=== PATIENT | female | born 1955 | race Caucasian/White ===

== ENCOUNTER 2022-06-09 22:06 | Observation (INO) | payer OTHER ==
--- OUTSIDE RECORDS SUMMARY | 2022-06-09 22:11 | XMS REPORT | Continuity of Care Document ---
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 Performing RAC) Organization Information: Site ID: RGA Name: [facility] Address: [address] [place] [phone] Director: Yobani Beltran Lab Interpretation Abnormal (test code = 00540-6) [facility], [id number] 10:31:00 Test Item Value Reference Range Interpretation Comments T3, free (test code 3.3 pg/mL 2.3-4.2 = 3051-0) MOISÉS (test code = FASTING:YES FASTING: YES MOISÉS) RAC (test code = Performing Organization RAC) Information: Site ID: RGA [facility]: [facility] Address: [address] [place] [phone] Director: Yobani Beltran [facility] with platelet and [id number] 10:31:00 Test Item Value Reference Range Interpretation Comments WBC (test code = See_Comment [Automated 0040-2) message] The system which generated this result transmitted reference range : 3.8 - 10.8 Thousand/uL. Th e reference range was not used to interpret this result as normal/abnormal . RBC (test code = See_Comment [Automated 359-8) message] The system which generated this result transmitted reference range : 3.80 - 5.10 Million/uL. The reference range was not used to interpret this result as normal/abnormal . HGB (test code = 13.7 g/dL 11.7-15.5 718-7) HCT (test code = 40.8 % 35-45 4544-3) MCV (test code = 89.7 fL 80-100 787-2) MCH (test code = 30.1 pg 27-33 785-6) MCHC (test code = 33.6 g/dL 32-36 786-4) RDW (test code = 11.7 % 11-15 788-0) Platelet count See_Comment [Automated (test code = message] The 777-3) system which generated this result transmitted reference range : 140 - 400 Thousand/uL. Th e reference range was not used to interpret this result as normal/abnormal . MPV (test code = 10.4 fL 7.5-12.5 776-5) Neutrophils, See_Comment [Automated absolute (test message] The code = 751-8) system which generated this result transmitted reference range : 1,500 - 7,800 cells/uL. The reference range was not used to interpret this result as normal/abnormal . Lymphocytes, See_Comment [Automated absolute (test message] The code = 731-0) system which generated this result transmitted reference range : 850 - 3,900 cells/uL. The reference range was not used to interpret this result as normal/abnormal . Monocytes, See_Comment [Automated absolute (test message] The code = 742-7) system which generated this result transmitted reference range : 200 - 950 cells/uL. The reference range was not used to interpret this result as normal/abnormal . Eosinophils, See_Comment [Automated absolute (test message] The code = 711-2) system which generated this result transmitted reference range : 15 - 500 cells/uL. The reference range was not used to interpret this result as normal/abnormal . Basophils, See_Comment [Automated absolute (test message] The code = 704-7) system which generated this result transmitted reference range : 0 - 200 cells/u L. The reference range was not used to interpr et this result as normal/abnormal . Neutrophils (test 47.1 % code = 770-8) Lymphocytes (test 37.2 % code = 736-9) Monocytes (test 10.6 % code = 5905-5) Eosinophils (test 4.1 % code = 713-8) Basophils + RC 1.0 % (test code = 706-2) MOISÉS (test code = FASTING:YES MOISÉS) FASTING: YES RAC (test code = Performing RAC) Organization Information: Site ID: RGA [facility]: [facility] Address: [address] [place] [phone] Director: Yobani Beltran [facility] SPINE LUMBAR W/O CONTRAST*HSE*2017-11-06 11:05:49EXAM: MRI LUMBAR SPINE WITHOUT CONTRASTINDICATION: Back painCOMPARISON: Radiographs dated 09/25/17TECHNIQUE: Multiplanar, multisequence noncontrast MR imaging of the lumbarspine.IV contrast: None.FINDINGS: There are 5 nonrib-bearing lumbar vertebra. There is hypointense T1 andhyperintense T2 signal within the opposing endplates at L2-L3 consistent withModic type I changes. The remaining vertebral bodies are normal in height,alignment and signal intensity. The facet joints and spinous processes arenormal in alignment. Intervertebral disc heights are normal.The conus medullaris terminates at L1 and is normal in signal intensity andcaliber. The cauda equina is normal.The posterior paraspinal soft tissues are normal. The imaged portion of theabdomen is unremarkable.INDIVIDUAL LEVELS:L1- L2: No spinal canal or neuroforaminal stenosis.L2-L3: Circumferential disc bulge measuring 6 mm. Mild spinal canal stenosiswith effacement of the lateral recesses. Diffuse facet joint hypertrophy.Moderate right and mild left neuroforaminal stenosis.L3-L4: No spinal canal stenosis. Facet joint hypertrophy with mildneuroforaminal stenosis.L4-L5: Circumferential disc bulge measuring 5 mm. Mild effacement of thelateralrecesses. Facet joint hypertrophy with mild neuroforaminal stenosis.L5-S1: No spinal canal nor foraminal stenosis.IMPRESSION: 1. Degenerative changes throughout the lumbar spine predominantly at L2-L3.2. Mild spinal canal stenosis at L2-L3 with effacement of the lateralrecesses.3. Effacement of the lateral recesses at L4-L5.4. Moderate neuroforaminal stenosis at L2-L3 on the right.LOCATION: R16XR SPINE LUMBAR COMPLETE*HSE*2017-09-27 21:13:47EXAM: Lumbar spine seriesLOCATION: [id number]: low back pain. COMPARISON: NoneDISCUSSION: AP, L5-S1, oblique, and lateral views of the lumbar spine are submitted.Mild bone demineralization limits evaluation.There are 5 lumbar-type foz-tgl-lcxvnwe vertebral bodies. Lumbar lordosis is slightly straightened.Mild lumbar levoscoliosis is centered at L2-L3.Alignment is otherwise within normal limits.No definite acute fracture or compression deformity is seenMild to moderate multilevel spondylosis is most prominent on the right atL2-L3.The sacrum is partially obscured by bowel gas/material. Multiple coarsecalcifications over the pelvis may be due to fibroids and phleboliths. Mildatherosclerotic calcifications are present.IMPRESSION:1. No acute osseous abnormalities.2. Mild to moderate multilevel spondylosis, most prominent on the right atL2-L3.
[2022-06-09 23:26] LABS: Urine Blood Negative (Negative); Urine Glucose Negative (Negative); Urine Protein Negative (Negative)
--- NOTE | 2022-06-09 23:29 | RAD REPORT ---
EXAM DESCRIPTION: Sonya Single View06/09/2022 11:23 pm CLINICAL HISTORY: Syncope COMPARISON: none FINDINGS: The lungs appear clear of acute infiltrate. The heart is normal size IMPRESSION: No acute abnormalities displayed
[2022-06-09 23:30] LABS: Absolute Lymphocytes (CBC) 1.1 K/uL (0.7-4.9); Hematocrit 39.5 % (36.0-45.0); Lymphocytes % 23.9 % (15.3-44.8); MCV 91.4 fL (80-100); MPV 7.6 fL (7.6-11.3); RBC Red Blood Cell Count 4.33 M/uL (3.86-4.86)
[2022-06-09 23:31] LABS: Protime INR 1.04
[2022-06-09 23:50] LABS: Albumin 3.4 g/dL (3.4-5.0); Bilirubin Direct 0.1 mg/dL (0-0.2); Bilirubin Total 0.5 mg/dL (0.2-1.0); Magnesium 2.2 mg/dL (1.8-2.4); Potassium 3.5 mmol/L (3.5-5.1); Protein, Total 7.2 g/dL (6.4-8.2); Troponin High Sensitivity 9.9 pg/mL (<58.9)
[2022-06-10 00:05] LABS: Urine Mucus Slight /HPF (None Seen); Urine RBC <5 /HPF (None Seen)
--- NOTE | 2022-06-10 01:05 | EDPHYS ---
Physician Documentation [facility] [place] Name: Rossy Delgado Age: 66 yrs Sex: Female : 1955 Arrival Date: 06/09/2022 Time: 22:10 Bed 20 Private MD: ED Physician Lionel Hernandez HPI: 06/09 23:05 This 66 yrs old Female presents to ER via Ambulatory with complaints of Lightheaded, cp "blacked out". 23:05 The patient has experienced syncope, lost consciousness. Onset: The symptoms/episode cp began/occurred today, about 2029. Duration: This was a single episode, that lasted an unknown period of time. Context: the episode(s) was witnessed, by no one, occurred at home, occurred while the patient was talking on phone, patient reportedly became unresponsive for unknown duration. Just prior to the episode the patient experienced no apparent symptoms. 23:05 Associated injury: The patient did not suffer any apparent associated injury. Current cp symptoms: Currently, the patient is not experiencing any symptoms. Historical: - Allergies: 22:43 PENICILLINS; aa9 - Home Meds: 23:28 levothyroxine 100 mcg tab 1 tab once daily [Active]; celecoxib 200 mg Oral cap 1 cap ll3 once daily [Active]; zolpidem 10 mg Oral tab 1 tab nightly [Active]; quetiapine 100 mg oral tab 1 tab nightly [Active]; - PMHx: 22:43 stroke; aa9 22:47 Pneumonia; Glaucoma; aa9 - PSHx: 22:43 Craniotomy; aa9 - Immunization history:: Client reports receiving the 2nd dose of the Covid vaccine, Flu vaccine is not up to date. - Social history:: Smoking status: Patient denies any tobacco usage or history of. ROS: 23:10 Constitutional: Negative for body aches, chills, fever, poor PO intake. cp 23:10 Eyes: Negative for injury, pain, redness, and discharge. cp 23:10 ENT: Negative for drainage from ear(s), ear pain, sore throat, difficulty swallowing, difficulty handling secretions. 23:10 Cardiovascular: Negative for chest pain, edema, palpitations. 23:10 Respiratory: Negative for cough, shortness of breath, wheezing. 23:10 Abdomen/GI: Negative for abdominal pain, nausea, vomiting, and diarrhea, black/tarry stool, rectal bleeding. 23:10 Neuro: Positive for syncope, Negative for altered mental status, dizziness, headache, weakness. 23:10 All other systems are negative. Exam: 22:50 ECG was reviewed by the Attending Physician. cp 23:15 Constitutional: The patient appears in no acute distress, alert, awake, comfortable, cp non-diaphoretic, non-toxic, well developed, well nourished. 23:15 Head/Face: Normocephalic, atraumatic. cp 23:15 Eyes: Periorbital structures: appear normal, Pupils: equal, round, and reactive to light and accomodation, Extraocular movements: intact throughout, Conjunctiva: normal, no exudate, no injection, Sclera: no appreciated abnormality, Lids and lashes: appear normal, bilaterally. 23:15 ENT: External ear(s): are unremarkable, Nose: is normal, Mouth: Lips: moist, Oral mucosa: pink and intact, moist, Posterior pharynx: Airway: no evidence of obstruction, patent. 23:15 Neck: ROM/movement: is normal, is supple, without pain, no range of motions limitations. 23:15 Chest/axilla: Inspection: normal, Palpation: is normal, no crepitus, no tenderness. 23:15 Cardiovascular: Rate: normal, Rhythm: regular, Edema: is not appreciated, JVD: is not appreciated. 23:15 Respiratory: the patient does not display signs of respiratory distress, Respirations: normal, no use of accessory muscles, no retractions, labored breathing, is not present, Breath sounds: are clear throughout, no decreased breath sounds, no stridor, no wheezing. 23:15 Abdomen/GI: Inspection: abdomen appears normal, Bowel sounds: active, all quadrants, Palpation: abdomen is soft and non-tender, in all quadrants. 23:15 Back: pain, is absent, ROM is normal. 23:15 Skin: cellulitis, is not appreciated, no rash present. 23:15 Neuro: Orientation: to person, place \\T\\ time. Mentation: is normal, Cerebellar function: Romberg testing is negative, Motor: moves all fours, strength is normal, Sensation: is normal. Vital Signs: 22:39 BP 134 / 75; Pulse 98; Resp 19 S; Temp 97.7(O); Pulse Ox 96% on R/A; Weight 72.57 kg aa9 (R); Height 5 ft. 11 in. (180.34 cm) (R); Pain 0/10; 23:01 BP 122 / 61; Pulse 89; Resp 16; Pulse Ox 96% on R/A; ll3 06/10 00:07 BP 142 / 79; Pulse 83; Resp 16; Pulse Ox 96% on R/A; ll3 01:35 BP 132 / 71; Pulse 89; Resp 16; Pulse Ox 99% on R/A; ll3 06/09 22:39 Body Mass Index 22.32 (72.57 kg, 180.34 cm) aa9 MDM: 06/09 22:51 Patient medically screened. 06/10 00:30 Differential Diagnosis: cardiac arrhythmia, cerebrovascular accident, GI bleed, cp seizure, sepsis, vasovagal episode. Test interpretation: by ED physician or midlevel provider: ECG, plain radiologic studies. Counseling: I had a detailed discussion with the patient and/or guardian regarding: the historical points, exam findings, and any diagnostic results supporting the discharge/admit diagnosis, lab results, radiology results. 00:30 Physician consultation: Maged Bustamante was called at 01:00, was contacted at 01:00, regarding admission, to the telemetry unit. patient's condition. 01:04 Data reviewed: vital signs, nurses notes, lab test result(s), EKG, radiologic studies, cp CT scan, plain films. 06/09 23:02 Order name: Basic Metabolic Panel; Complete Time: 00:17 06/10 00:17 Interpretation: Normal except: GLUC 122; GFR 65. 06/09 23:02 Order name: CBC with Diff; Complete Time: 23:41 06/09 23:02 Order name: LFT's; Complete Time: 00:17 06/10 00:17 Interpretation: Normal except: GLOB 3.8; A/G 0.9. 06/09 23:02 Order name: Magnesium; Complete Time: 00:17 06/09 23:02 Order name: PT-INR; Complete Time: 23:41 06/09 23:02 Order name: Troponin HS; Complete Time: 00:17 06/10 00:17 Interpretation: Reviewed. 06/09 23:02 Order name: Urine Microscopic Only; Complete Time: 00:17 cp 06/09 23:27 Order name: Urine Dipstick-Ancillary; Complete Time: 23:41 EDSD 06/10 01:05 Order name: SARS RAPID ll3 06/10 05:03 Order name: CBC with Automated Diff EDMS 06/10 05:08 Order name: Comprehensive Metabolic Panel EDSD 06/10 05:08 Order name: Troponin High Sensitivity EDSD 06/10 05:08 Order name: Lipid Profile EDSD 06/10 05:08 Order name: T4 Free EDSD 06/09 23:02 Order name: XRAY Chest (1 view); Complete Time: 23:41 cp 06/09 23:02 Order name: EKG; Complete Time: 23:03 cp 06/09 23:02 Order name: Cardiac monitoring; Complete Time: 23:02 cp 06/09 23:02 Order name: EKG - Nurse/Tech; Complete Time: 23:02 cp 06/09 23:02 Order name: IV Saline Lock; Complete Time: 23:20 cp 06/09 23:02 Order name: Labs collected and sent; Complete Time: 23:20 cp 06/09 23:02 Order name: O2 Per Protocol; Complete Time: 23:02 cp 06/09 23:02 Order name: O2 Sat Monitoring; Complete Time: 23:02 cp 06/09 23:02 Order name: Urine Dipstick-Ancillary (obtain specimen); Complete Time: 23:26 cp 06/09 23:42 Order name: CT Head Brain wo Cont cp 06/09 23:46 Order name: Head Brain Wo Cont EDSD 06/10 05:08 Order name: Magnesium EDSD 06/10 05:08 Order name: Thyroid Stimulating Hormone EDSD EC/12 22:50 Rate is 93 beats/min. Rhythm is regular. [place] interval is normal. QRS interval is normal. cp QT interval is normal. T waves are Inverted in leads aVR, V3. Interpreted by me. Reviewed by me. Administered Medications: 06/10 01:35 Drug: Ambien (zolpidem) 10 mg Route: PO; ll3 03:19 Follow up: Response: No adverse reaction ll3 Disposition: 05:51 Co-signature as Attending Physician, Lionel Hernandez MD I agree with the assessment and kdr plan of care. Disposition Summary: 09/13/22 01:04 Hospitalization Ordered Hospitalization Status: Observation cp Provider: Yobani Roa cp Condition: Stable cp Problem: new cp Symptoms: have improved cp Bed/Room Type: Standard cp Location: Telemetry/MedSurg (observation)(06/10/22 04:00) mw Room Assignment: 419(06/10/22 04:00) mw Diagnosis - Syncope cp Forms: - Medication Reconciliation Form cp - SBAR form cp Signatures: Dispatcher [employer] EDMS Demetria Zurita RN RN Lionel Hernandez MD MD [facility] Maged Bustamante, RATE QUOTING OPERATOR-C RATE QUOTING OPERATOR-Cla1 Zachary Goyal PA PA cp Ruthy Clifford, RN RN ll3 Lucia Davenport, RN RN aa9 Corrections: (The following items were deleted from the chart) 06/09 23:11 23:11 This 66 yrs old Female presents to ER via Ambulatory with complaints of cp Lightheaded, "blacked out". cp 23:32 22:43 Home Meds: None; aa9 ll3 06/10 01:22 01:04 Telemetry/MedSurg (observation) cp mw 01:22 01:04 cp mw 04:00 01:[address] [facility] ER HOLD mw mw 04:00 01:22 ERHOLD- mw mw 06/11 02:04 06/10 01:04 Test interpretation: by ED physician or midlevel provider: ECG, plain cp radiologic studies, 06/11 02:04 06/10 01:04 Counseling: I had a detailed discussion with the patient and/or guardian cp regarding: the historical points, exam findings, and any diagnostic results supporting the discharge/admit diagnosis, lab results, radiology results, cp 06/11 02:04 06/10 01:04 Differential Diagnosis: cardiac arrhythmia, cerebrovascular accident, GI cp bleed, seizure, sepsis, vasovagal episode, cp
--- NOTE | 2022-06-10 01:05 | ER ---
Nurse's Notes [facility] Name: Rossy Delgado Age: 66 yrs Sex: Female : 1955 Arrival Date: 06/09/2022 Time: 22:10 Bed 20 Private MD: Diagnosis: Syncope Presentation: 06/09 22:39 Chief complaint: Patient states: I woke up scared on the couch because people were aa9 banging on my door. Friend states'" she was on the phone with another friend and she said she started gurgling and the line went quiet. She has no memory of the incident. we called the police and ambulance to go check on her and that's why she was hiding, they were banging on the door. ". Coronavirus screen: Vaccine status: Patient reports receiving the 2nd dose of the covid vaccine. Ebola Screen: No symptoms or risks identified at this time. Initial Sepsis Screen: Does the patient meet any 2 criteria? No. Patient's initial sepsis screen is negative. Does the patient have a suspected source of infection? No. Patient's initial sepsis screen is negative. Risk Assessment: Do you want to hurt yourself or someone else? Patient reports no desire to harm self or others. Onset of symptoms was June 09, 2022 at 20:30. 22:39 Method Of Arrival: Ambulatory aa9 22:39 Acuity: YIN 3 aa9 Triage Assessment: 22:44 General: Appears uncomfortable, Behavior is cooperative, anxious, quiet. Pain: Denies aa9 pain. 22:45 Neuro: Level of Consciousness is awake, alert, obeys commands, Oriented to person, aa9 place, time, situation, Cryptologic Technician Operator/Analyst are equal bilaterally. Respiratory: Airway is patent Respiratory effort is even, unlabored. Historical: - Allergies: 22:43 PENICILLINS; aa9 - Home Meds: 23:28 levothyroxine 100 mcg tab 1 tab once daily [Active]; celecoxib 200 mg Oral cap 1 cap ll3 once daily [Active]; zolpidem 10 mg Oral tab 1 tab nightly [Active]; quetiapine 100 mg oral tab 1 tab nightly [Active]; - PMHx: 22:43 stroke; aa9 22:47 Pneumonia; Glaucoma; aa9 - PSHx: 22:43 Craniotomy; aa9 - Immunization history:: Client reports receiving the 2nd dose of the Covid vaccine, Flu vaccine is not up to date. - Social history:: Smoking status: Patient denies any tobacco usage or history of. Screenin:45 Abuse screen: Denies threats or abuse. Denies injuries from another. Nutritional aa9 screening: No deficits noted. Tuberculosis screening: No symptoms or risk factors identified. Fall Risk None identified. Assessment: 22:57 General: Appears comfortable, Behavior is cooperative, anxious. Pain: Denies pain. ll3 Neuro: Level of Consciousness is awake, alert, obeys commands, Oriented to person, place, time, situation, Reports c/o being lightheaded, states she pay have had a syncopal episode, states "I can't remember". Cardiovascular: Patient's skin is warm and dry. Respiratory: Respiratory effort is even, unlabored, Respiratory pattern is regular, symmetrical. Derm: Skin is pink, warm \\T\\ dry. Musculoskeletal: Circulation, motion, and sensation intact. 06/10 00:07 Reassessment: Patient and/or family updated on plan of care and expected duration. Pain ll3 level reassessed. Patient is alert, oriented x 3, equal unlabored respirations, skin warm/dry/pink. States "I feeling fine, just still anxious" Patient denies pain at this time. 01:00 Reassessment: [phone] Cristal (Daughter). ll3 01:35 Reassessment: No changes from previously documented assessment. Patient and/or family ll3 updated on plan of care and expected duration. Pain level reassessed. Patient is alert, oriented x 3, equal unlabored respirations, skin warm/dry/pink. Vital Signs: 06/09 22:39 BP 134 / 75; Pulse 98; Resp 19 S; Temp 97.7(O); Pulse Ox 96% on R/A; Weight 72.57 kg aa9 (R); Height 5 ft. 11 in. (180.34 cm) (R); Pain 0/10; 23:01 BP 122 / 61; Pulse 89; Resp 16; Pulse Ox 96% on R/A; ll3 06/10 00:07 BP 142 / 79; Pulse 83; Resp 16; Pulse Ox 96% on R/A; ll3 01:35 BP 132 / 71; Pulse 89; Resp 16; Pulse Ox 99% on R/A; ll3 06/09 22:39 Body Mass Index 22.32 (72.57 kg, 180.34 cm) aa9 ED Course: 06/09 22:10 Patient arrived in ED. bp1 22:43 Triage completed. aa9 22:45 Arm band placed on. aa9 22:48 Zachary Goyal PA is PHCP. cp 22:48 Lionel Hernandez MD is Attending Physician. cp 22:57 EKG done, by ED staff, reviewed by Zachary NAIK. ll3 23:24 XRAY Chest (1 view) In Process Unspecified. EDMS 23:26 Urine Microscopic Only Sent. ll3 23:26 Initial lab(s) drawn, by dc, sent to lab. Urine collected: clean catch specimen, clear, ll3 X-ray(s) taken. Inserted saline lock: 22 gauge in right antecubital area, using aseptic technique. Blood collected. 23:27 Ruthy Clifford RN is Primary Nurse. ll3 23:27 Patient has correct armband on for positive identification. Bed in low position. Call ll3 light in reach. Side rails up X 1. Client placed on continuous cardiac and pulse oximetry monitoring. NIBP monitoring applied. 06/10 00:26 Head Brain Wo Cont In Process Unspecified. EDMS 01:04 Yobani Roa MD is Hospitalizing Provider. cp 01:36 No provider procedures requiring assistance completed. ll3 05:39 Patient admitted, IV remains in place. ll3 Administered Medications: 01:35 Drug: Ambien (zolpidem) 10 mg Route: PO; ll3 03:19 Follow up: Response: No adverse reaction ll3 Medication: 01:36 VIS not applicable for this client. ll3 Outcome: 01:04 Decision to Hospitalize by Provider. cp 05:39 Admitted to Tele accompanied by nurse, via wheelchair, room 419, with chart, Report ll3 called to JONNY Guerrero 05:39 Condition: stable 05:39 Instructed on the need for admit, Demonstrated understanding of instructions. 05:40 Patient left the ED. ll3 Signatures: Dispatcher [employer] EDMS Zachary Goyal PA PA cp Josie Dove bp1 Ruthy Clifford RN RN ll3 Lucia Davenport RN RN aa9 Corrections: (The following items were deleted from the chart) 06/09 22:46 22:39 Chief complaint: Patient states: I woke up scared because people was knocking on aa9 my door. Friend states'" she was on the phone with another friend and she said she started gurgling and the line went quiet. She has no memory of the incident. we called the police and ambulance to go check on her and that's why she was hiding, they were banging on the door. " aa9 23:32 22:43 Home Meds: None; aa9 ll3
[2022-06-10] MEDS ORDERED: ZOLPIDEM TARTRATE 5 MG TABLET ONE (01:43)
--- NOTE | 2022-06-10 02:06 | P.HP ---
Certification for Inpatient Patient admitted to: Observation With expected LOS: <2 Midnights Patient will require the following post-hospital care: None Practitioner: I am a practitioner with admitting privileges, knowledge of patient current condition, hospital course, and medical plan of care. Services: Services provided to patient in accordance with Admission requirements found in Title 42 Section 412.3 of the Code of Federal Regulations <Maged Bustamante - Last Filed: 06/10/22 02:00> Patient History Date of Service: 06/10/22 Primary Care Provider: Dr. Esqueda (zoroastrian) Reason for admission: Syncope History of Present Illness: 66 female with history of hypothyroidism presents emergency department for syncope. She reports that she is seated on the couch reading a book in speaking with her friend on the phone when she began to feel lightheaded and lost consciousness her friend noticed that she was not responding on the phone and called somebody to go check on her, a few minutes later some of her friends arrived and were knocking on the door, they ended up having to break into the house she regained consciousness. Patient denies similar episodes in the past she denies any chest pain, palpitations or headache prior to the incident. Patient was evaluated in the emergency department she had a CT scan of her head without contrast which was negative for any acute findings her labs were unremarkable, initial troponin negative EKG sinus rhythm without STEMI criteria present this x-ray unremarkable. ED provider wishes to admit under observation for syncope. - Past Medical/Surgical History -: hypothyroidism -: Craniotomy Psychosocial/ Personal History: Lives at home alone, is - Family History Brother -: Heart disease Mother -: Hypertension, Stroke - Social History Smoking Status: Never smoker Alcohol use: No CD- Drugs: No Caffeine use: Yes Place of Residence: Home <Maged Bustamante - Last Filed: 06/10/22 02:00> Date of Service: 06/10/22 <Yobani Roa - Last Filed: 06/10/22 17:10> Review of Systems 10-point ROS is otherwise unremarkable Cardiovascular: Light Headedness (Syncope), Other <Maged Bustamante - Last Filed: 06/10/22 02:00> Physical Examination - Physical Exam General: Alert, In no apparent distress, Oriented x3 HEENT: Atraumatic, PERRLA, Mucous membr. moist/pink, EOMI, Sclerae nonicteric Neck: Supple, 2+ carotid pulse no bruit, No LAD, Without JVD or thyroid abnormality Respiratory: Clear to auscultation bilaterally, Normal air movement Cardiovascular: Regular rate/rhythm, Normal S1 S2 Gastrointestinal: Normal bowel sounds, No tenderness Musculoskeletal: No tenderness Integumentary: No rashes Neurological: Normal speech, Normal strength at 5/5 x4 extr, Normal tone, Normal affect - Studies Laboratory Data (last 24 hrs) 06/09/22 23:12: PT 11.4, INR 1.04 06/09/22 23:12: WBC 4.80, Hgb 13.6, Hct 39.5, Plt Count 246 06/09/22 23:12: Sodium 140, Potassium 3.5, BUN 14, Creatinine 0.96, Glucose 122 H, Magnesium 2.2, Total Bilirubin 0.5, AST 16, ALT 26, Alkaline Phosphatase 85 <Maged Bustamante - Last Filed: 06/10/22 02:00> - Studies Laboratory Data (last 24 hrs) 06/09/22 23:12: PT 11.4, INR 1.04 06/09/22 23:12: WBC 4.80, Hgb 13.6, Hct 39.5, Plt Count 246 06/09/22 23:12: Sodium 140, Potassium 3.5, BUN 14, Creatinine 0.96, Glucose 122 H, Magnesium 2.2, Total Bilirubin 0.5, AST 16, ALT 26, Alkaline Phosphatase 85 <Yobani Roa - Last Filed: 06/10/22 17:10> Assessment and Plan - Plan Assessment: Syncope Hypothyroidism Plan: Syncope: Initial trop negative, EKG NSR without STEMI or block, CXR and CT head without acute changes. Monitor on tele, obtain orthostatics, barry troponins. Will obtain echo, cardiology consult in place. Hypothyroidism: Continue levothyroxine. Check thyroid panel in AM. DVT PPX: Lovenox Code status:Full Discharge Plan: Home Plan to discharge in: 24 Hours - Advance Directives Does patient have a Living Will: Yes Does patient have a Durable POA for Healthcare: No - Code Status/Comfort Care Code Status Assessed: Yes Critical Care: No Time Spent Managing Pts Care (In Minutes): 55 <Maged Bustamante - Last Filed: 06/10/22 02:00> Physician Review: Patient Assessed, Agree with Above Assessment and Plan <Yobani Roa - Last Filed: 06/10/22 17:10>
[2022-06-10 02:08] LABS: SARS-CoV-2 Antigen Rapid Res Negative (Negative)
[2022-06-10] MEDS ORDERED: ONDANSETRON 4 MG/2 ML VIAL IV PRN (02:41)
[2022-06-10 02:54] VITALS: BMI 22.3
[2022-06-10 04:51] LABS: Absolute Lymphocytes (CBC) 1.7 K/uL (0.7-4.9); Hematocrit 38.9 % (36.0-45.0); Lymphocytes % 30.9 % (15.3-44.8); MCV 91.4 fL (80-100); MPV 7.9 fL (7.6-11.3); RBC Red Blood Cell Count 4.26 M/uL (3.86-4.86)
[2022-06-10 05:08] LABS: Albumin 3.2 g/dL (3.4-5.0); Bilirubin Total 0.6 mg/dL (0.2-1.0); Magnesium 2.2 mg/dL (1.8-2.4); Potassium 3.6 mmol/L (3.5-5.1); Protein, Total 6.9 g/dL (6.4-8.2); Thyroid Stimulating Hormone 1.48 uIU/mL (0.360-3.740); Troponin High Sensitivity 12.9 pg/mL (<58.9)
[2022-06-10 05:52] VITALS: O2SAT 99
--- NOTE | 2022-06-10 07:32 | RAD REPORT ---
EXAM DESCRIPTION: - CP - 06/10/2022 6:46 am CLINICAL HISTORY: syncope COMPARISON: No comparisons TECHNIQUE: Real-time sonographic evaluation of bilateral carotid and vertebral systems was performed . Maddox scale and Doppler interrogation were performed with waveform tracing bilaterally. FINDINGS: Normal high resistance waveforms are noted in both external carotid arteries. The common c arotid arteries and internal carotid arteries show normal low resistance waveforms. Calcified and noncalcified plaquing changes are seen in the proximal right internal carotid artery. N oncalcified plaquing changes are present in the left carotid bulb extending into the proximal left IC A. Peak systolic and end diastolic velocity values and the ICA/CCA ratios are in the non-hemodynamica lly significant range. Antegrade flow seen in both vertebral arteries. Velocity values and ratios were recorded and are retained in the patient's imaging records. IMPRESSION: Bilateral carotid bulb and proximal ICA calcified and noncalcified plaquing changes. Visual inspection, peak systolic velocity values and ratios do not indicate hemodynamically significa nt stenoses.
[2022-06-10] MEDS ORDERED: POTASSIUM 25 MEQ EFFERV TAB PO ONE (08:00)
[2022-06-10] MEDS: ASPIRIN EC 81 MG TAB PO SCH (08:50)
[2022-06-10] MEDS: ENOXAPARIN 40 MG/0.4 ML SQ SCH (08:50)
[2022-06-10] MEDS: LEVOTHYROXINE SOD 0.1 MG TAB PO SCH (08:53)
--- NOTE | 2022-06-10 15:46 | RAD REPORT ---
EXAM DESCRIPTION: CT - Head Brain Wo Cont - 06/10/2022 6:47 am CLINICAL HISTORY: 66 years Female syncope COMPARISON: None TECHNIQUE: Contiguous axial images of the brain were obtained without the administration of intraven ous contrast.This exam was performed according to our departmental dose-optimization program which in cludes use of Automated Exposure Control, adjustment of the mA and/or kV according to patient size an d/or use of iterative reconstruction technique. DLP: 866 mGy*cm FINDINGS: Brain: Right temporal postoperative encephalomalacia No acute intracranial hemorrhage. No extra-axial collection. No mass effect or herniation. Mild prominence of the sulci and cisterns. Co nfluent periventricular and subcortical white matter hypodensity is noted. Ventricles: Within normal limits in size. Globes and orbits: No acute abnormality. Prior right cataract surgery. Bones: Prior right-sided craniotomy. No acute osseous finding Paranasal sinuses: Chronic right maxillary and right sphenoid sinus disease Mastoid air cells: Well pneumatized. Soft tissues: Within normal limits IMPRESSION: 1. No acute hemorrhage, hydrocephalus or herniation. 2. Cerebral volume loss, chronic small vessel ischemic changes and postoperative right parietotempora l encephalomalacia. Consider MRI brain for further evaluation. 3. Chronic right maxillary/sphenoid sinus disease Electronically signed by: Primitivo Dawkins DO 06/10/2022 12:38 AM CDT Due to temporary technical issues with the PACS/Fluency reporting system, reports are being signed by the in house radiologists without review as a courtesy to insure prompt reporting. The interpreting radiologist is fully responsible for the content of the report.
--- NOTE | 2022-06-10 22:25 | CON ---
Date of Consultation: 06/10/2022 Reason For Consultation: Syncope. History Of Present Illness: A 66-year-old female, history of hypothyroidism, presented after a quest ionable syncopal episode. She claimed that she was talking to her friend and she was sitting on the couch, and then, she does not remember what happened. Friend tried to come and to check on her. Doo r was locked, so they had to call the police where they had to break the door to get in and found the patient under the bed. She claimed that she was scared. She did not know what to do, but there was a period of time that she does not recall what happened. She denies having chest pain, shortness of breath, palpitations, dizziness, or any symptoms prior to the event. Currently, she is asymptomatic . No other complaints. Past Medical History: Hypothyroidism. Medications: Refer to reconciliation sheet for detailed list. Allergies: PENICILLIN. Family History: No premature coronary artery disease or cancer. Social History: Does not smoke or drink. Does not use any drugs. Review of Systems: All systems reviewed and they are negative except as mentioned in HPI. Physical Examination: Vital Signs: Temperature is 98.4, pulse 78, breathing at 12, blood pressure 120/62, saturating 97% o n room air. General: Pleasant middle-aged female, in no apparent distress. Head and Neck: Pupils are equal, reactive to light. Intact eye movements. No JVD. No cervical lym phadenopathy. Neck: Supple. Thyroid is not enlarged. Lungs: Clear to auscultation bilaterally. No rhonchi, rales, or crackles. No accessory muscle use. Heart: Regular rate and rhythm. No extra sounds. Abdomen: Soft, nontender. Bowel sounds positive. No organomegaly. No masses or hernia. No rigidi ty or rebound. Extremities: No clubbing, cyanosis. Intact pulses. Skin: No rashes. Neurologic: Alert, awake, oriented x3. No acute focal deficits appreciated. Investigations: Cardiac enzymes x3 are negative. Creatinine is normal at 0.8. Electrolytes are nor mal. Hemoglobin is 13.3, white blood count is 5.5. CT head, no acute abnormality. Assessment And Recommendation: Questionable syncope versus near-syncope. Story is not very clear. However, workup here is normal so far. Echocardiogram is normal. Cardiac enzymes are negative and t o arrhythmia on the telemetry. From my perspective, this patient can be released and to follow up at the office. We will plan for an event monitor placement and possible stress test as well. Thank you for the consult. /JANIE Voice ID: [id number] Report ID: [id number]
[2022-06-10] MEDS ORDERED: ZOLPIDEM TARTRATE 10 MG TABLET PO PRN (22:55)
[2022-06-10] MEDS ORDERED: ZOLPIDEM TARTRATE 5 MG TABLET PO PRN (23:24)
[2022-06-11 03:43] LABS: Absolute Lymphocytes (CBC) 2.4 K/uL (0.7-4.9); Hematocrit 38.6 % (36.0-45.0); Lymphocytes % 48.9 % (15.3-44.8); MCV 90.9 fL (80-100); RBC Red Blood Cell Count 4.25 M/uL (3.86-4.86)
[2022-06-11 03:59] LABS: Albumin 3.1 g/dL (3.4-5.0); Bilirubin Total 0.7 mg/dL (0.2-1.0); Magnesium 2.1 mg/dL (1.8-2.4); Potassium 3.7 mmol/L (3.5-5.1); Protein, Total 6.7 g/dL (6.4-8.2)
[2022-06-11 04:09] VITALS: TEMP 97.2
[2022-06-11] MEDS: LEVOTHYROXINE SOD 0.1 MG TAB PO SCH (06:17)
--- NOTE | 2022-06-11 08:01 | ECHO ---
HEIGHT: 5 ft 11 in WEIGHT: 160 lb 0 oz DATE OF STUDY: 06/10/[address]: Maged Bustamante NP 2-DIMENSIONAL: YES M.MODE: YES DOPPLER: YES COLOR FLOW: YES TDS: NO PORTABLE: YES DEFINITY: NO BUBBLE STUDY: NO DIAGNOSIS: SYNCOPE CARDIAC HISTORY: CATHERIZATION: NO SURGERY: NO PROSTHETIC VALVE: NO PACEMAKER: NO MEASUREMENTS (cm) DIASTOLIC (NORMALS) SYSTOLIC (NORMALS) IVSd 1.0 (0.6-1.2) LA Diam 2.0 (1.9-4.0) LVEF 55-60% LVIDd 2.6 (3.5-5.7) LVIDs 1.9 (2.0-3.5) %FS 27% LVPWd 1.2 (0.6-1.2) Ao Diam 2.5 (2.0-3.7) 2 DIMENSIONAL ASSESSMENT: RIGHT ATRIUM: NORMAL LEFT ATRIUM: NORMAL RIGHT VENTRICLE: NORMAL LEFT VENTRICLE: NORMAL TRICUSPID VALVE: MITRAL VALVE: PULMONIC VALVE: NORMAL AORTIC VALVE: PERICARDIAL EFFUSION: NONE AORTIC ROOT: NORMAL LEFT VENTRICULAR WALL MOTION: NORMAL DOPPLER/COLOR FLOW: SEE BELOW COMMENTS: NORMAL LEFT VENTRICULAR EJECTION FRACTION 55-60%. NORMAL LEFT VENTRICULAR WALL MOTION. MILD AORTIC, MITRAL AND TRICUSPID REGURGITATION. TECHNOLOGIST: Zohaib ARNOLD
[2022-06-11 08:21] VITALS: BP 118/73
[2022-06-11] MEDS: ASPIRIN EC 81 MG TAB PO SCH (08:31)
[2022-06-11] MEDS: ENOXAPARIN 40 MG/0.4 ML SQ SCH (08:31)
--- NOTE | 2022-06-11 08:49 | P.DS ---
Admission Date: 06/10/22 Discharge Date: 06/11/22 Primary Care Provider: Dr. Wilson ([facility]) Disposition: ROUTINE DISCHARGE Discharge Condition: GOOD Reason for Admission: Syncope Consultations: 1. Cardiology Hospital Course: DIAGNOSES: # Syncope # Hypothyroidism # Dyslipidemia HOSPITAL COURSE: Ms. Rossy Delgado is a pleasant 66 year old female with a past medical history significant for hypothyroidism who was admitted to the [facility] on 06/10/2022 for syncope. She was admitted to the Medicine service. Upon further evaluation, her vital signs remained stable. Her laboratory studies were notable for dyslipidemia. CT head was without evidence of acute hemorrhage, hydrocephalus, or herniation. Carotid ultrasound revealed, "visual inspection, peak systolic velocity values and ratios do not indicate hemodynamically significant stenoses." Transthorachic echocardiogram revealed, "normal left ventricular ejection fraction 55-60%. normal left ventricular wall motion. mild aortic, mitral and tricuspid regurgitation." Cardiology was consulted and she was evaluated by Dr. Dove. He has cleared her for discharge with an outpatient follow-up for a cardiac event monitor. On 06/11/2022, she was seen on morning rounds and deemed medically stable for discharge. She was discharged with instructions to schedule follow-up appointments with her PCP (Dr. Wilson - at [facility]) in 3-5 days and with Cardiology (Dr. Dove) in 5-7 days. She was provided a prescription for rosuvastatin for her newly diagnosed dyslipidemia and advised to schedule follow-up liver tests with Dr. Esqueda in 1 month. She was given the opportunity to ask questions and reported no further questions. Furthermore, all questions were answered to the best of my ability. Today, I personally spent 20 minutes on her case, of which greater than 50% of the time was spent in patient education, counseling, and coordination of care as described above. Vital Signs/Physical Exam: Temp Pulse Resp BP Pulse Ox 97.2 F 78 16 118/73 94 06/11/22 08:00 06/11/22 08:00 06/11/22 08:00 06/11/22 08:00 06/11/22 08:00 General: Alert, In no apparent distress, Oriented x3 HEENT: Atraumatic, PERRLA, Mucous membr. moist/pink, EOMI, Sclerae nonicteric Neck: Supple, JVD not distended Respiratory: Clear to auscultation bilaterally, Normal air movement Cardiovascular: No edema, Regular rate/rhythm, Normal S1 S2, No gallops, No rubs, No murmurs Gastrointestinal: Normal bowel sounds, Soft and benign, Non-distended, No tenderness, No rebound, No guarding Musculoskeletal: No clubbing Integumentary: No rashes Neurological: Normal speech, Cranial nerves 3-12 intact, Normal affect Laboratory Data at Discharge: WBC 5.00 K/uL (4.3-10.9) 06/11/22 02:42 Hgb 13.3 g/dL (12.0-15.0) 06/11/22 02:42 Hct 38.6 % (36.0-45.0) 06/11/22 02:42 Plt Count 242 K/uL (152-406) 06/11/22 02:42 PT 11.4 SECONDS (9.5-12.5) 06/09/22 23:12 INR 1.04 06/09/22 23:12 Sodium 142 mmol/L (136-145) 06/11/22 02:42 Potassium 3.7 mmol/L (3.5-5.1) 06/11/22 02:42 BUN 13 mg/dL (7-18) 06/11/22 02:42 Creatinine 0.84 mg/dL (0.55-1.3) 06/11/22 02:42 Glucose 103 mg/dL (74-106) 06/11/22 02:42 Magnesium 2.1 mg/dL (1.8-2.4) 06/11/22 02:42 Total Bilirubin 0.7 mg/dL (0.2-1.0) 06/11/22 02:42 AST 14 U/L (15-37) L 06/11/22 02:42 ALT 24 U/L (12-78) 06/11/22 02:42 Alkaline Phosphatase 83 U/L (45-117) 06/11/22 02:42 Triglycerides 81 mg/dL (<150) 06/10/22 04:12 Cholesterol 243 mg/dL (<200) H 06/10/22 04:12 HDL Cholesterol 74 mg/dL (40-60) H 06/10/22 04:12 Cholesterol/HDL Ratio 3.28 06/10/22 04:12 Home Medications: Celecoxib 200 mg PO DAILY 06/10/22 Levothyroxine Sodium [Levothyroxine] 100 mcg PO [id number] 06/10/22 Quetiapine [Seroquel*] 100 mg PO BEDTIME 06/10/22 Zolpidem Tartrate 10 mg PO BEDTIME 06/10/22 Rosuvastatin Calcium 5 mg PO DAILY #30 tab 06/11/22 New Medications: Rosuvastatin Calcium 5 mg PO DAILY #30 tab Physician Discharge Instructions: 1. Please schedule a follow-up with your PCP in 3-5 days 2. Please schedule a follow-up with Dr. Dove (Cardiology) in 3-5 days - At this appointment, you will discuss the possibility of a heart monitor and cardiac stress test Diet: AHA Activity: Ad leticia Followup: Burt Dove MD [ACTIVE - CAN ADMIT] - (furniture assembler- call to schedule an appointment) HARRIETT WILSON [OUTSIDE PHYSICIAN] - Time spent managing pt's care (in minutes): 20
[2022-06-11] MEDS ORDERED: POTASSIUM CL SA 10 MEQ TAB PO ONE (09:00)
--- NOTE | 2022-06-11 17:15 | EKG ---
Test Date: 2022-06-09 Test Time: 22:43:54 [employer]: LL MEASUREMENT RESULTS: Intervals: Rate: 93 UT: 146 QRSD: 72 QT: 360 QTc: 447 [place]: P: 79 UT: 146 QRS: 53 T: 45 INTERPRETIVE STATEMENTS: Normal sinus rhythm Normal ECG No previous ECG available for comparison Electronically Signed On 06-11-22 17:07:16 CDT by Ovidio Sheets
== END 2022-06-11 11:22 | disposition home or self-care (01) ==
LOC: ER 22:06 → ERHOLD 06-10 02:04 → 4TH 06-10 04:10
PROVIDERS: ADMIT Internal Medicine; ATTEND Internal Medicine
DX: R55 Syncope and collapse (principal); E03.9 Hypothyroidism, unspecified; E78.5 Hyperlipidemia, unspecified; I08.3 Combined rheumatic disorders of mitral, aortic and tricuspid valves; H40.9 Unspecified glaucoma; Z88.0 Allergy status to penicillin; Z20.822 Contact with and (suspected) exposure to COVID-19; Z82.49 Family history of ischemic heart disease and other diseases of the circulatory system; Z82.3 Family history of stroke
CPT/HCPCS: 36415; 70450; 71045; 80048; 80053; 80061; 80076; 81003; 81015; 83735; 84439; 84443; 84484; 85025; 85610; 87811; 93005; 93306; 93880; 99285; G0378; J1650

== ENCOUNTER 2024-01-29 12:48 | Emergency (ER) | payer OTHER ==
[2024-01-29] MEDS ORDERED: BENZONATATE 100 MG CAP PO ONE (13:33)
[2024-01-29 14:23] LABS: SARS-CoV-2 Antigen CONTROL BLUE LINE VIS/BG OK; SARS-CoV-2 Antigen Rapid Res Negative (Negative)
--- NOTE | 2024-01-29 14:53 | RAD REPORT ---
EXAM DESCRIPTION: RAD - Chest Pa And Lat (2 Views) - 01/29/2024 2:44 pm CLINICAL HISTORY: COUGH, CONGESTION COMPARISON: Chest Pa And Lat (2 Views) dated 09/30/2022; Chest Single View dated 06/09/2022 FINDINGS: Lines: None. Lungs: No evidence of edema or pneumonia. Pleural: No significant pleural effusions or pneumothorax. Cardiac: The heart size is within normal limits. Mediastinum: Within normal limits. Bones: No acute fractures. Other: None IMPRESSION: No acute cardiopulmonary disease.
--- NOTE | 2024-01-29 15:05 | EDPHYS ---
Physician Documentation [facility] Name: Rossy Delgado Age: 68 yrs Sex: Female : 1955 Arrival Date: 01/29/2024 Time: 12:48 Bed 10 Private MD: ED Physician Yoon Davis HPI: 01/28 13:30 This 68 yrs old Female presents to ER via Ambulatory with complaints of Cough, cp Congestion. 13:30 The patient or guardian reports cough, with productive sputum. Onset: The cp symptoms/episode began/occurred 4 day(s) ago. Severity of symptoms: in the emergency department the symptoms are unchanged, despite home interventions. 13:30 Associated signs and symptoms: Pertinent negatives: chest pain, diarrhea, fever, sore cp throat, vomiting. Historical: - Allergies: 13:13 PENICILLINS; aa5 - PMHx: 13:13 Glaucoma; Pneumonia; stroke; aa5 - PSHx: 13:13 Craniotomy; aa5 - Immunization history:: Adult Immunizations unknown. - Infectious Disease History:: Denies. - Social history:: Smoking status: Patient denies any tobacco usage or history of. ROS: 13:35 Constitutional: Negative for body aches, chills, fever, poor PO intake, cp 13:35 Eyes: Negative for injury, pain, redness, and discharge, cp 13:35 Respiratory: Positive for cough, "sounds productive", Negative for shortness of breath, wheezing, 13:35 Abdomen/GI: Negative for abdominal pain, vomiting, diarrhea, constipation, Exam: 13:40 Constitutional: The patient appears in no acute distress, alert, awake, cp non-diaphoretic, non-toxic, well developed, well nourished, 13:40 Head/Face: Normocephalic, atraumatic. cp 13:40 Eyes: Periorbital structures: appear normal, Conjunctiva: normal, no exudate, no injection, Sclera: no appreciated abnormality, Lids and lashes: appear normal, bilaterally, 13:40 ENT: External ear(s): are unremarkable, Ear canal(s): are normal, clear, TM's: dullness, bilaterally, Nose: is normal, Mouth: Lips: moist, Oral mucosa: pink and intact, moist, Posterior pharynx: Airway: no evidence of obstruction, patent, 13:40 Chest/axilla: Inspection: normal, 13:40 Cardiovascular: Rate: normal, Rhythm: regular, Edema: is not appreciated, JVD: is not appreciated, 13:40 Respiratory: the patient does not display signs of respiratory distress, Respirations: normal, no use of accessory muscles, no retractions, labored breathing, is not present, Breath sounds: decreased breath sounds, are not appreciated, rhonchi, are not appreciated, stridor, is not appreciated, wheezing: is not appreciated, 13:40 Abdomen/GI: Exam negative for discomfort, distension, guarding, Inspection: abdomen appears normal, 13:40 Back: pain, is absent, 13:40 Neuro: Orientation: to person, place \\T\\ time. Mentation: is normal, Vital Signs: 13:12 BP 108 / 78; Pulse 87; Resp 18 S; Temp 98.3(O); Pulse Ox 97% on R/A; Weight 74.84 kg aa5 (R); Height 5 ft. 11 in. (R); 15:00 BP 110 / 72; Pulse 78; Resp 18; Temp 98; Pulse Ox 98% on R/A; ph 13:12 Body Mass Index 23.01 (74.84 kg, 180.34 cm) aa5 MDM: 13:11 Patient medically screened. cp 15:05 Data reviewed: vital signs, nurses notes, lab test result(s), radiologic studies, plain cp films. 15:05 Differential Diagnosis: Bronchitis Influenza Viral Syndrome Pneumonia. I considered the cp following discharge prescriptions or medication management in the emergency department Medications were administered in the Emergency Department. See MAR. Test considered but Not performed:. Counseling: I had a detailed discussion with the patient and/or guardian regarding the historical points, exam findings, and any diagnostic results supporting the discharge/admit diagnosis, lab results, radiology results, the need for outpatient follow up, a family practitioner, to return to the emergency department if symptoms worsen or persist or if there are any questions or concerns that arise at home. Response to treatment: the patient's symptoms have markedly improved after treatment, and as a result, I will discharge patient. 01/28 13:59 Order name: SARS-COV-2 Antigen Rapid [facility] 01/28 13:59 Order name: Influenza Screen (A EDAZ 01/28 13:59 Order name: Group A Streptococcus Rapid Sc EDMS 01/28 14:23 Order name: SARS-COV-2 Antigen Rapid; Complete Time: 14:28 EDMS 01/28 14:28 Interpretation: Reviewed. cp 01/28 14:30 Order name: Influenza Screen (A ; Complete Time: 15:02 EDMS 01/28 14:30 Order name: Throat Culture; Complete Time: 15:02 EDMS 01/28 14:30 Order name: Group A Streptococcus Rapid Sc; Complete Time: 15:02 EDMS 01/28 14:33 Order name: Throat Culture EDMS 01/28 14:25 Order name: Chest Pa And Lat (2 Views) EDMS 01/28 14:53 Order name: RAD; Complete Time: 15:02 EDMS Administered Medications: 13:50 Drug: Tessalon Perle PO 200 mg PO once Route: PO; ph 15:33 Follow up: Response: No adverse reaction ph Disposition Summary: 01/29/24 15:05 Discharge Ordered Notes: Location: Home cp Problem: new cp Symptoms: have improved cp Condition: Stable cp Diagnosis - Cough cp Followup: cp - With: Private Physician - When: 2 - 3 days - Reason: Worsening of condition Discharge Instructions: - Discharge Summary Sheet cp - Cough, Adult cp Forms: - Medication Reconciliation Form cp - Antibiotic Education cp - Prescription Opioid Use cp - Patient Portal Instructions cp - Leadership Thank You Letter cp Prescriptions: - albuterol sulfate 90 mcg/actuation Inhalation HFA Aerosol Inhaler - inhale 1 puff INHALATION route every 4 to 6 hours as needed for bronchospasm; cp administer via ventilator; 1 unit; Refills: 0, Product Selection Permitted - Tessalon Perles 100 mg Oral capsule - take 2 capsule ORAL route every 8 hours As needed; 30 capsule; Refills: 0, cp Product Selection Permitted - Zithromax Z-Regis 250 mg Oral Tablet - take 1 tablet ORAL route as directed for 5 days Day 1 - take two (2) tablets cp one time. Day 2, 3, 4 , 5 take one (1) tablet once daily.; 6 tablet; Refills: 0, Product Selection Permitted Signatures: Dispatcher [employer] [facility] Juana Sparks RN RN aa5 Emani Cadet RN RN ph Zachary Goyal, GUMARO PA cp Corrections: (The following items were deleted from the chart) 14:25 13:42 Chest Single View ordered. EDMS EDMS 01/29 02:01/27 13:30 This 68 yrs old Female presents to ER via Ambulatory with complaints of cp Cough, Congestion. cp 01/29 02:01/27 13:30 The patient or guardian reports cough, with productive sputum, cp cp 01/29 02:01/27 13:30 Onset: The symptoms/episode began/occurred 4 day(s) ago, cp cp 01/29 02:01/27 13:30 Severity of symptoms: in the emergency department the symptoms are cp unchanged, despite home interventions, cp
--- NOTE | 2024-01-29 15:05 | ER ---
Nurse's Notes [facility] [place] Name: Rossy Delgado Age: 68 yrs Sex: Female : 1955 Arrival Date: 01/29/2024 Time: 12:48 Bed 10 Private MD: Diagnosis: Cough Presentation: 01/28 13:12 Chief complaint: Patient states: cough and congestion that began Thursday. Coronavirus aa5 screen: congestion, cough unrelated to allergies. Ebola Screen: Patient denies travel to an Ebola-affected area in the 21 days before illness onset. Initial Sepsis Screen: Does the patient meet any 2 criteria? No. Patient's initial sepsis screen is negative. Does the patient have a suspected source of infection? No. Patient's initial sepsis screen is negative. Risk Assessment: Do you want to hurt yourself or someone else? Patient reports no desire to harm self or others. Onset of symptoms was January 25, 2024. 13:12 Method Of Arrival: Ambulatory aa5 13:12 Acuity: YIN 4 aa5 Historical: - Allergies: 13:13 PENICILLINS; aa5 - PMHx: 13:13 Glaucoma; Pneumonia; stroke; aa5 - PSHx: 13:13 Craniotomy; aa5 - Immunization history:: Adult Immunizations unknown. - Infectious Disease History:: Denies. - Social history:: Smoking status: Patient denies any tobacco usage or history of. Screenin:31 [facility] ED Fall Risk Assessment (Adult) History of falling in the last 3 months, ph including since admission No falls in past 3 months (0 pts) Confusion or Disorientation No (0 pts) Intoxicated or Sedated No (0 pts) Impaired Gait No (0 pts) Mobility Assist Device Used No (0 pt) Altered Elimination No (0 pt) Score/Fall Risk Level 0 - 2 = Low Risk Oriented to surroundings, Maintained a safe environment, Hourly rounding (assess needs \T\ fall precautionary measures) done. Abuse screen: Denies threats or abuse. Denies injuries from another. Nutritional screening: No deficits noted. Tuberculosis screening: No symptoms or risk factors identified. Assessment: 13:35 General: Appears in no apparent distress. comfortable, well groomed, Behavior is calm, ph cooperative, appropriate for age, Denies fever. Pain: Denies pain. Neuro: Level of Consciousness is awake, alert, obeys commands, Oriented to person, place, time, situation. Cardiovascular: Capillary refill < 3 seconds in bilateral fingers Patient's skin is warm and dry. Respiratory: Reports cough that is Airway is patent Respiratory effort is even, unlabored, Breath sounds are clear bilaterally. Denies shortness of breath. Derm: Skin is pink, warm \T\ dry. Vital Signs: 13:12 BP 108 / 78; Pulse 87; Resp 18 S; Temp 98.3(O); Pulse Ox 97% on R/A; Weight 74.84 kg aa5 (R); Height 5 ft. 11 in. (R); 15:00 BP 110 / 72; Pulse 78; Resp 18; Temp 98; Pulse Ox 98% on R/A; ph 13:12 Body Mass Index 23.01 (74.84 kg, 180.34 cm) aa5 ED Course: 12:50 Patient arrived in ED. mr 13:11 Zachary Goyal PA is PHCP. cp 13:11 Yoon Davis MD is Attending Physician. cp 13:13 Triage completed. aa 13:13 Arm band placed on. aa 13:30 Door closed. Noise minimized. Warm blanket given. ph 13:44 Emani Cadet, RN is Primary Nurse. ph 14:46 Chest Pa And Lat (2 Views) In Process Unspecified. EDMS 15:32 Patient has correct armband on for positive identification. ph 15:32 No provider procedures requiring assistance completed. Patient did not have IV access ph during this emergency room visit. Administered Medications: 13:50 Drug: Tessalon Perle PO 200 mg PO once Route: PO; ph 15:33 Follow up: Response: No adverse reaction ph Medication: 15:32 VIS not applicable for this client. ph Outcome: 15:05 Discharge ordered by MD. cp 15:32 Discharged to home ambulatory, ph 15:32 Condition: good 15:32 Discharge instructions given to patient, Instructed on discharge instructions, follow up and referral plans. medication usage, Demonstrated understanding of instructions, follow-up care, medications, Prescriptions given X 3, 15:33 Patient left the ED. ph Signatures: Dispatcher [employer] EDMO María Castellano, Reg Reg mr Juana Sparks RN RN aa Emani Cadet RN RN Page, Zachary, PA PA cp
[2024-01-30 14:47] VITALS: BP 110/72; TEMP 98; O2SAT 98
== END 2024-01-29 15:33 | disposition home or self-care (01) ==
LOC: ER 12:48
DX: R05.9 Cough, unspecified (principal); Z11.52 Encounter for screening for COVID-19; Z88.0 Allergy status to penicillin
CPT/HCPCS: 36415; 71046; 87070; 87081; 87804; 87811; 99283